=== PATIENT | female | born 1980 | race Asian ===

== ENCOUNTER 2022-02-22 07:48 | Inpatient (IN) ==
[2022-02-22] MEDS ORDERED: OXYTOCIN 30 UNITS/500 ML BAG IV PRN ×2 (07:52→08:00)
[2022-02-22] MEDS ORDERED: LIDOCAINE 1% LOCAL 20 ML VIAL INFIL PRN (07:52)
[2022-02-22 08:34] LABS: Hematocrit (blood only) 32.7 % (34.1-44.9); Hemoglobin 11.5 g/dl (12.0-16.0); Mean Corpuscular Hemoglobin 32.6 pg (25.0-34.0); Mean Corpuscular Hgb Conc 35.2 g/dL (32.0-36.0); Mean Corpuscular Volume 92.6 fL (80.0-100.0); Mean Platelet Volume 11.3 fL (9.4-12.3); Platelet Count 141 K/uL (130-400); RDW Coefficient of Variation 12.8 % (11.5-14.5); RDW Standard Deviation 42.6 fL (36.4-46.3); Red Blood Count 3.53 M/uL (3.93-5.22); White Blood Count 9.55 K/ul (4.8-10.8)
[2022-02-22] MEDS: LACTATED RINGER'S 1,000 ML IV PRN ×4 (09:00→21:27)
--- NOTE | 2022-02-22 17:00 | History & Physical Report ---
Date of Service February 22, 2022 Assessment & Plan (1) Unfavorable cervix in term : Plan: Unfavorable cervix cervix is only 1-2 this morning Pitocin is started COVID testing was done last night expect steady but slow progress Admission and Anticipated Discharge Date Admission Date: February 22, 2022 History of Present Illness Primary Care Provider: NO PCP Visit MADELEINE Calculator Estimated Delivery Date Method Current WG Current Estimate 02/27/22 LMP (Certain) 38w 4d LMP: 05/23/21 : 1 Full term: 0 Premature: 0 Total Number of Induced Abortions: 0 Total Number of Spontaneous Abortions: 0 Ectopics: 0 Multiple births: 0 Number of Living Children: 0 and Delivery Plans AMA>40@del *Anatomy Scan @ 20wks * Echo 22-24wks (01/18/22 @ [facility])-structurally normal;mild flow acceleration across ductal arch; no f/u needed *Growth scan @32wks *Weekly NST's @36 wks *Twice weekly NST @38wks *Weekly MARTY's @38wks *Deliver by 40 wksIOL 04/25 Flu shot given 12/09/21 - [place] Allergies Allergy/AdvReac Type Severity Reaction Status Date / Time No Known Allergies Allergy Verified 02/21/22 19:36 Home Medications Medication Instructions Recorded Confirmed Type calcium carbonate [Calcium 500] 500 mg PO DAILY 11/24/21 02/22/22 History prenat.vits,rachel,wvt-bqbl-jlvec 1 tab PO DAILY 11/24/21 02/22/22 History calcium phosphate,dibasic 77 1 tab PO DAILY 02/21/22 02/22/22 History mg-vitamin D3 400 unit tablet ferrous sulfate 325 mg (65 mg 325 mg PO DAILY 02/21/22 02/22/22 History iron) tablet (Iron (ferrous sulfate)) Patient History Medical History Varicella vaccination Surgical History No history of previous surgery Family History Aunt Colorectal cancer Denies family history of Ovarian cancer Breast cancer Social History (Updated 02/22/22 @ 08:04 by Tequila Kinsey, BART) Smoking Status: Never smoker Hx Alcohol Use: No Hx Substance Use: No Preferred Language: Armenian Communication Ability: Effective Communication Ability Comment: Speaks Belarusian well. Declines interpretor at this time. Visual Impairment: No Limitations Hearing Ability: Normal Quality Cloth Tester Required: No Beliefs That Will Affect Care: None marital status: marital status details: Abraham Prieto (41) [phone] Current Living Situation: Spouse Current Living Situation Comment: lives with spouse, no pets current occupational status: employed and retired current occupation: [employer] Feels Safe at Home: Yes Safety Concerns: Feels Safe At This Time Assistive Devices: None Review of Systems as per Subjective / HPI Physical Exam Constitutional: WD/WN, vitals as above well developed and well nourished Respiratory: normal respiratory effort, lungs clear to auscultation normal respiratory effort Cardiovascular: RRR, no murmur, no edema Gastrointestinal (Abdomen): normal bowel sounds, soft, nontender, no hepatosplenomegaly Results & Data ([facility]) Vital Signs (Past 12 Hours) Vital Signs Temp Pulse Resp BP 02/22/22 08:06 98.1 F 18 02/22/22 16:08 69 02/22/22 16:08 20 91/57 L 02/22/22 14:51 18 02/22/22 14:51 98.4 F 18 02/22/22 15:01 68 02/22/22 15:01 20 90/58 L 02/22/22 14:00 76 02/22/22 14:00 98/57 L 02/22/22 13:06 74 02/22/22 13:06 101/59 L 02/22/22 12:07 69 02/22/22 12:07 96/56 L 02/22/22 11:01 18 02/22/22 11:01 98.2 F 18 02/22/22 11:01 68 02/22/22 11:01 92/58 L 02/22/22 10:06 69 02/22/22 10:06 94/57 L 02/22/22 08:59 18 02/22/22 08:59 18 02/22/22 08:59 82 02/22/22 08:59 99/58 L 02/22/22 07:56 98.1 F 100 H 18 105/66 Coding Level of Care Code None Diagnoses Unfavorable cervix in term O34.40
[2022-02-22] MEDS ORDERED: ePHEDrine sulfate 50 MG/ML AMP ONE (19:34)
[2022-02-22] MEDS ORDERED: fentaNYL citrate 100 MCG/2 ML VIAL ONE (19:35)
[2022-02-22] MEDS ORDERED: SODIUM CHLORIDE 0.9% INJ 10 ML VIAL ONE (19:35)
[2022-02-22] MEDS ORDERED: BUPIVACAINE 0.25% 30 ML VIAL ONE (19:35)
[2022-02-22] MEDS ORDERED: LIDOCAINE 2%/EPINEPHRINE 1:200,000 20 ML SDV ONE (19:35)
[2022-02-22] MEDS ORDERED: fentaNYL 2MCG/ML ROPIVACAINE 1.25MG/ML 100 ML BAG EPI ONE (19:36)
[2022-02-22] MEDS ORDERED: ePHEDrine sulfate 50 MG/ML AMP IV PRN (20:25)
[2022-02-22] MEDS ORDERED: NALOXONE HCL 0.4 MG/1 ML VIAL/CARP IV PRN (20:25)
[2022-02-22] MEDS ORDERED: NALOXONE HCL 1 MG in SODIUM CHLORIDE 0.9% 1000ML 1,000 ML IV PRN (20:25)
[2022-02-22] MEDS ORDERED: diphenhydrAMINE 50 MG/ML VIAL IV PRN (20:25)
[2022-02-22] MEDS ORDERED: NALBUPHINE HCL INJ 10 MG/ML AMP IV PRN (20:25)
--- NOTE | 2022-02-22 20:25 | Anesthesiology Consultation ---
Date of Service February 22, 2022 Assessment & Plan Chart Review Chart Review: Patient NOT seen in Pre Admission Testing and Acceptable Risk for Labor Epidural Consults Requested none History Height/Weight Height: 5 ft 6 in Weight: 66.678 kg Allergies Allergy/AdvReac Type Severity Reaction Status Date / Time No Known Allergies Allergy Verified 02/21/22 19:36 Medications Home Medications Medication Instructions Recorded Confirmed Last Taken calcium carbonate [Calcium 500] 500 mg PO DAILY 11/24/21 02/22/22 02/20/22 20:00 prenat.vits,rachel,rrz-kway-lonld 1 tab PO DAILY 11/24/21 02/22/22 Unknown calcium phosphate,dibasic 77 1 tab PO DAILY 02/21/22 02/22/22 02/20/22 20:00 mg-vitamin D3 400 unit tablet ferrous sulfate 325 mg (65 mg 325 mg PO DAILY 02/21/22 02/22/22 02/21/22 09:00 iron) tablet (Iron (ferrous sulfate)) Active Medications Generic Name Dose Route Start Last Admin Trade Name Nam PRN Reason Stop Dose Admin Lactated Ringer's 1,000 mls @ 125 mls/hr 02/22/22 08:00 02/22/22 20:20 Lr IV 02/24/22 07:59 999 mls/hr .Q8H PRN Administration L&D Protocol Protocol Oxytocin 30 units in 500 mls @ 18 mls/hr 02/22/22 08:00 02/22/22 17:58 Pitocin IV 02/24/22 07:59 1.08 units/hr .Q24H PRN 18 mls/hr Labor Induction/Augmentation Titration Protocol 1.08 UNITS/HR Past Medical History Medical History Anemia Varicella vaccination Past Family History Family History Aunt Colorectal cancer Denies family history of Ovarian cancer Breast cancer Past Surgical History Surgical History No history of previous surgery Social History Smoking Status: Never smoker Hx Alcohol Use: No Hx Substance Use: No substance use type: does not use Physical Exam Vital Signs Last Vital Signs Temp 98.6 F 02/22/22 19:15 Pulse 73 02/22/22 20:23 Resp 18 02/22/22 19:15 BP 102/56 L 02/22/22 19:03 Pulse Ox 99 02/22/22 20:23 Testing Laboratory Results 02/22/22 08:10
--- NOTE | 2022-02-22 20:59 | Labor Progress Brief Note ---
Date of Service February 22, 2022 Cx now tight 3cm, has epidural, comfortable. Good CTX pattern Assessment & Plan Admission and Anticipated Discharge Date Admission Date: February 22, 2022 Results & Data ([facility]) Vital Signs (Past 12 Hours) Vital Signs Temp Pulse Resp BP Pulse Ox 02/22/22 20:56 85 02/22/22 20:56 102/67 02/22/22 20:54 74 02/22/22 20:54 99/62 L 02/22/22 20:53 99 02/22/22 20:53 74 02/22/22 20:52 74 02/22/22 20:52 97/63 L 02/22/22 20:50 81 02/22/22 20:50 98/64 L 02/22/22 20:48 99 02/22/22 20:48 79 02/22/22 20:48 104/63 02/22/22 20:46 77 02/22/22 20:46 98/60 L 02/22/22 20:45 75 02/22/22 20:45 101/63 02/22/22 20:43 100 02/22/22 20:43 79 02/22/22 20:44 74 02/22/22 20:44 104/63 02/22/22 20:42 77 02/22/22 20:42 97/60 L 02/22/22 20:40 72 02/22/22 20:40 101/62 02/22/22 20:40 71 02/22/22 20:40 101/64 02/22/22 20:38 99 02/22/22 20:38 70 02/22/22 20:37 77 02/22/22 20:37 110/75 02/22/22 20:33 100 02/22/22 20:33 78 02/22/22 20:28 99 02/22/22 20:28 73 02/22/22 20:24 71 02/22/22 20:24 103/66 02/22/22 20:23 99 02/22/22 20:23 73 02/22/22 20:18 100 02/22/22 20:18 73 02/22/22 19:15 18 02/22/22 19:15 98.6 F 18 02/22/22 20:13 100 02/22/22 20:13 75 02/22/22 20:08 99 02/22/22 20:08 75 02/22/22 20:03 98 02/22/22 20:03 74 02/22/22 19:03 68 02/22/22 19:03 102/56 L 02/22/22 17:58 75 02/22/22 17:58 99/54 L 02/22/22 17:05 70 02/22/22 17:05 93/58 L 02/22/22 16:08 69 02/22/22 16:08 20 91/57 L 02/22/22 14:51 18 02/22/22 14:51 98.4 F 18 02/22/22 15:01 68 02/22/22 15:01 20 90/58 L 02/22/22 14:00 76 02/22/22 14:00 98/57 L 02/22/22 13:06 74 02/22/22 13:06 101/59 L 02/22/22 12:07 69 02/22/22 12:07 96/56 L 02/22/22 11:01 18 02/22/22 11:01 98.2 F 18 02/22/22 11:01 68 02/22/22 11:01 92/58 L 02/22/22 10:06 69 02/22/22 10:06 94/57 L 02/22/22 08:59 18 02/22/22 08:59 18 02/22/22 08:59 82 02/22/22 08:59 99/58 L Coding Level of Care Code None
[2022-02-23] MEDS ORDERED: NURSING L&D Epidural Breakthrough Pain Update ONE (04:19)
[2022-02-23] MEDS: fentaNYL 2MCG/ML ROPIVACAINE 1.25MG/ML 100 ML BAG EPI PRN ×2 (05:00→11:52)
[2022-02-23] MEDS: LACTATED RINGER'S 1,000 ML IV PRN (05:04)
--- NOTE | 2022-02-23 07:26 | History & Physical Report ---
Date of Service February 23, 2022 Summary unfavorable cervix with some minimal benefit with cervical Bonilla Pitocin since yesterday a.m. category 1 heart rate tracing rupture membranes at 2 AM Spontaneous rupture of membranes approximately 2 AM we are at 20 milliunits dose on the Pitocin heart rate tracing is category 1. IUPC is placed to better determine contraction strength contractions on first look adequate we will continue to monitor progress and contractions carefully Discussed with the patient and her that there is genuine progress at this stage is my last check was 1-2 and how she is 4 cm, I do expect if we can get progress that will take off soon. Note estimated weight is 18th percentile so was not thought to be an overly large baby because again my optimism for vaginal delivery. signout with Dr. Jefferson this morning by phone at 7:20 AM Assessment & Plan Admission and Anticipated Discharge Date Admission Date: February 22, 2022 History of Present Illness Primary Care Provider: NO PCP Allergies Allergy/AdvReac Type Severity Reaction Status Date / Time No Known Allergies Allergy Verified 02/21/22 19:36 Home Medications Medication Instructions Recorded Confirmed Type calcium carbonate [Calcium 500] 500 mg PO DAILY 11/24/21 02/22/22 History prenat.vits,rachel,hcd-akne-ruguj 1 tab PO DAILY 11/24/21 02/22/22 History calcium phosphate,dibasic 77 1 tab PO DAILY 02/21/22 02/22/22 History mg-vitamin D3 400 unit tablet ferrous sulfate 325 mg (65 mg 325 mg PO DAILY 02/21/22 02/22/22 History iron) tablet (Iron (ferrous sulfate)) Patient History Medical History Anemia Varicella vaccination Surgical History No history of previous surgery Family History Aunt Colorectal cancer Denies family history of Ovarian cancer Breast cancer Social History Smoking Status: Never smoker Hx Alcohol Use: No Hx Substance Use: No Preferred Language: Yakut Communication Ability: Effective Communication Ability Comment: Speaks Belgian well. Declines interpretor at this time. Visual Impairment: No Limitations Hearing Ability: Normal Hemmer Automatic Required: No Beliefs That Will Affect Care: None marital status: marital status details: Abraham Prieto (41) [phone] Current Living Situation: Spouse Current Living Situation Comment: lives with spouse, no pets current occupational status: employed and retired current occupation: [email or web address] Feels Safe at Home: Yes Safety Concerns: Feels Safe At This Time Assistive Devices: None Results & Data ([facility]) Vital Signs (Past 12 Hours) Vital Signs Temp Pulse Resp BP Pulse Ox O2 Del Method 02/23/22 07:04 98.1 F 18 02/23/22 07:04 Room Air 02/23/22 07:19 88 97 02/23/22 07:14 81 106/61 96 02/23/22 07:09 85 98 02/23/22 07:04 84 98 02/23/22 06:59 92 H 97 02/23/22 06:58 93 H 105/67 02/23/22 06:54 84 98 02/23/22 06:49 80 97 02/23/22 06:44 84 97 02/23/22 06:43 85 110/69 02/23/22 06:39 85 98 02/23/22 06:34 83 98 02/23/22 06:29 82 98 02/23/22 06:28 77 110/69 02/23/22 06:24 78 97 02/23/22 06:19 79 97 02/23/22 06:14 87 99 02/23/22 06:13 85 102/63 02/23/22 06:09 82 98 02/23/22 06:04 78 98 02/23/22 05:59 79 97 02/23/22 05:58 73 106/65 02/23/22 05:54 75 97 02/23/22 05:49 77 97 02/23/22 05:45 78 107/61 02/23/22 05:44 81 98 02/23/22 05:39 83 99 02/23/22 05:34 74 99 02/23/22 05:29 98 02/23/22 05:29 71 02/23/22 05:29 72 97/57 L 02/23/22 05:23 70 97 02/23/22 05:18 75 98 02/23/22 05:15 84 92 02/23/22 05:13 81 99 02/23/22 05:08 74 98 02/23/22 05:03 79 98 02/23/22 04:58 79 99/60 L 100 02/23/22 04:53 75 98 02/23/22 04:48 80 98 02/23/22 04:44 75 107/63 02/23/22 04:43 74 98 02/23/22 04:38 77 96 02/23/22 04:33 77 98 02/23/22 04:30 78 105/67 02/23/22 04:28 75 98 02/23/22 04:23 79 97 02/23/22 04:18 82 98 02/23/22 04:14 77 102/65 02/23/22 04:13 79 99 02/23/22 04:08 78 98 02/23/22 04:03 79 98 02/23/22 04:00 74 100/63 02/23/22 03:58 74 100 02/23/22 03:53 74 98 02/23/22 03:48 75 96 02/23/22 03:44 75 97/60 L 02/23/22 03:43 76 97 02/23/22 03:38 75 98 02/23/22 03:33 77 100 02/23/22 03:28 72 99/59 L 97 02/23/22 03:23 70 95 02/23/22 03:18 70 96 02/23/22 03:13 68 98/57 L 96 02/23/22 03:08 71 98 02/23/22 03:03 78 99 02/23/22 02:59 72 106/60 02/23/22 02:58 70 97 02/23/22 02:53 72 97 02/23/22 02:48 66 97 02/23/22 02:43 67 97 02/23/22 02:44 79 99/62 L 02/23/22 02:38 69 97 02/23/22 02:33 66 97 02/23/22 02:30 67 104/65 02/23/22 02:28 64 97 02/23/22 02:23 67 97 02/23/22 02:18 78 100 02/23/22 02:15 78 116/60 02/23/22 02:13 85 100 02/23/22 02:14 75 108/64 02/23/22 02:08 81 100 02/23/22 02:03 62 99 02/23/22 02:00 62 96/59 L 02/23/22 01:58 65 99 02/23/22 01:53 63 97 02/23/22 01:48 65 99 02/23/22 01:45 64 88/55 L 02/23/22 01:43 64 99 02/23/22 01:38 64 99 02/23/22 01:33 66 99 02/23/22 01:28 61 95/60 L 97 02/23/22 01:23 63 97 02/23/22 01:18 62 97 02/23/22 01:13 65 97/59 L 96 02/23/22 01:08 64 97 02/23/22 01:03 68 99 02/23/22 01:00 63 91/58 L 02/23/22 00:58 66 99 02/23/22 00:53 68 96 02/23/22 00:48 65 96 02/23/22 00:44 65 89/52 L 02/23/22 00:43 63 97 02/23/22 00:38 63 96 02/23/22 00:33 63 96 02/23/22 00:28 70 98 02/23/22 00:29 66 94/55 L 02/23/22 00:23 64 96 02/23/22 00:18 60 96 02/23/22 00:14 64 98/56 L 02/23/22 00:13 63 97 02/23/22 00:08 63 98 02/23/22 00:03 64 99 02/22/22 23:58 98 02/22/22 23:58 71 02/22/22 23:59 64 02/22/22 23:59 92/59 L 02/22/22 23:53 98 02/22/22 23:53 63 02/22/22 23:48 99 02/22/22 23:48 67 02/22/22 23:44 67 02/22/22 23:44 96/58 L 02/22/22 23:43 99 02/22/22 23:43 70 02/22/22 23:38 98 02/22/22 23:38 60 02/22/22 23:33 97 02/22/22 23:33 61 02/22/22 23:28 98 02/22/22 23:28 61 02/22/22 23:28 98/61 L 02/22/22 23:23 98 02/22/22 23:23 62 02/22/22 23:18 97 02/22/22 23:18 62 02/22/22 23:15 60 02/22/22 23:15 99/59 L 02/22/22 23:13 98 02/22/22 23:13 63 02/22/22 23:08 98 02/22/22 23:08 62 02/22/22 23:03 99 02/22/22 23:03 68 02/22/22 22:59 67 02/22/22 22:59 100/55 L 02/22/22 22:58 98 02/22/22 22:58 62 02/22/22 22:53 98 02/22/22 22:53 67 02/22/22 22:48 97 02/22/22 22:48 62 02/22/22 22:43 97 02/22/22 22:43 69 02/22/22 22:43 105/64 02/22/22 22:38 97 02/22/22 22:38 64 02/22/22 22:33 97 02/22/22 22:33 64 02/22/22 22:29 64 02/22/22 22:29 103/59 L 02/22/22 22:28 97 02/22/22 22:28 64 02/22/22 22:23 97 02/22/22 22:23 63 02/22/22 22:18 98 02/22/22 22:18 69 02/22/22 22:15 64 02/22/22 22:15 97/62 L 02/22/22 22:13 98 02/22/22 22:13 68 02/22/22 22:08 99 02/22/22 22:08 69 02/22/22 22:03 97 02/22/22 22:03 66 02/22/22 22:00 65 02/22/22 22:00 101/64 02/22/22 21:58 98 02/22/22 21:58 65 02/22/22 21:53 99 02/22/22 21:53 62 02/22/22 21:48 97 02/22/22 21:48 65 02/22/22 21:43 98 02/22/22 21:43 65 02/22/22 21:44 65 02/22/22 21:44 98/60 L 02/22/22 21:38 98 02/22/22 21:38 67 02/22/22 21:33 98 02/22/22 21:33 72 02/22/22 21:29 67 02/22/22 21:29 100/59 L 02/22/22 21:28 99 02/22/22 21:28 66 02/22/22 21:23 100 02/22/22 21:23 75 02/22/22 21:18 100 02/22/22 21:18 65 02/22/22 21:15 71 02/22/22 21:15 117/53 L 02/22/22 21:13 100 02/22/22 21:13 79 02/22/22 21:00 16 02/22/22 21:00 98.2 F 16 02/22/22 21:08 98 02/22/22 21:08 82 02/22/22 21:03 98 02/22/22 21:03 72 02/22/22 20:58 99 02/22/22 20:58 73 02/22/22 20:58 99/64 L 02/22/22 20:56 85 02/22/22 20:56 102/67 02/22/22 20:54 74 02/22/22 20:54 99/62 L 02/22/22 20:53 99 02/22/22 20:53 74 02/22/22 20:52 74 02/22/22 20:52 97/63 L 02/22/22 20:50 81 02/22/22 20:50 98/64 L 02/22/22 20:48 99 02/22/22 20:48 79 02/22/22 20:48 104/63 02/22/22 20:46 77 02/22/22 20:46 98/60 L 02/22/22 20:45 75 02/22/22 20:45 101/63 02/22/22 20:43 100 02/22/22 20:43 79 02/22/22 20:44 74 02/22/22 20:44 104/63 02/22/22 20:42 77 02/22/22 20:42 97/60 L 02/22/22 20:40 72 02/22/22 20:40 101/62 02/22/22 20:40 71 02/22/22 20:40 101/64 02/22/22 20:38 99 02/22/22 20:38 70 02/22/22 20:37 77 02/22/22 20:37 110/75 02/22/22 20:33 100 02/22/22 20:33 78 02/22/22 20:28 99 02/22/22 20:28 73 02/22/22 20:24 71 02/22/22 20:24 103/66 02/22/22 20:23 99 02/22/22 20:23 73 02/22/22 20:18 100 02/22/22 20:18 73 02/22/22 20:13 100 02/22/22 20:13 75 02/22/22 20:08 99 02/22/22 20:08 75 02/22/22 20:03 98 02/22/22 20:03 74 Coding Level of Care Code None
--- NOTE | 2022-02-23 07:35 | Labor Progress Brief Note ---
Date of Service February 23, 2022 On last assessment her contractions do seem reasonable however they could be slightly stronger as her peak is only up to 40 milliunits on each contraction we are at 20 will raise the maximum to 28 Assessment & Plan Admission and Anticipated Discharge Date Admission Date: February 22, 2022 Results & Data ([facility]) Vital Signs (Past 12 Hours) Vital Signs Temp Pulse Resp BP Pulse Ox O2 Del Method 02/23/22 07:04 98.1 F 18 02/23/22 07:04 Room Air 02/23/22 07:29 88 98 02/23/22 07:28 82 99/62 L 02/23/22 07:24 79 97 02/23/22 07:19 88 97 02/23/22 07:14 81 106/61 96 02/23/22 07:09 85 98 02/23/22 07:04 84 98 02/23/22 06:59 92 H 97 02/23/22 06:58 93 H 105/67 02/23/22 06:54 84 98 02/23/22 06:49 80 97 02/23/22 06:44 84 97 02/23/22 06:43 85 110/69 02/23/22 06:39 85 98 02/23/22 06:34 83 98 02/23/22 06:29 82 98 02/23/22 06:28 77 110/69 02/23/22 06:24 78 97 02/23/22 06:19 79 97 02/23/22 06:14 87 99 02/23/22 06:13 85 102/63 02/23/22 06:09 82 98 02/23/22 06:04 78 98 02/23/22 05:59 79 97 02/23/22 05:58 73 106/65 02/23/22 05:54 75 97 02/23/22 05:49 77 97 02/23/22 05:45 78 107/61 02/23/22 05:44 81 98 02/23/22 05:39 83 99 02/23/22 05:34 74 99 02/23/22 05:29 98 02/23/22 05:29 71 02/23/22 05:29 72 97/57 L 02/23/22 05:23 70 97 02/23/22 05:18 75 98 02/23/22 05:15 84 92 02/23/22 05:13 81 99 02/23/22 05:08 74 98 02/23/22 05:03 79 98 02/23/22 04:58 79 99/60 L 100 02/23/22 04:53 75 98 02/23/22 04:48 80 98 02/23/22 04:44 75 107/63 02/23/22 04:43 74 98 02/23/22 04:38 77 96 02/23/22 04:33 77 98 02/23/22 04:30 78 105/67 02/23/22 04:28 75 98 02/23/22 04:23 79 97 02/23/22 04:18 82 98 02/23/22 04:14 77 102/65 02/23/22 04:13 79 99 02/23/22 04:08 78 98 02/23/22 04:03 79 98 02/23/22 04:00 74 100/63 02/23/22 03:58 74 100 02/23/22 03:53 74 98 02/23/22 03:48 75 96 02/23/22 03:44 75 97/60 L 02/23/22 03:43 76 97 02/23/22 03:38 75 98 02/23/22 03:33 77 100 02/23/22 03:28 72 99/59 L 97 02/23/22 03:23 70 95 02/23/22 03:18 70 96 02/23/22 03:13 68 98/57 L 96 02/23/22 03:08 71 98 02/23/22 03:03 78 99 02/23/22 02:59 72 106/60 02/23/22 02:58 70 97 02/23/22 02:53 72 97 02/23/22 02:48 66 97 02/23/22 02:43 67 97 02/23/22 02:44 79 99/62 L 02/23/22 02:38 69 97 02/23/22 02:33 66 97 02/23/22 02:30 67 104/65 02/23/22 02:28 64 97 02/23/22 02:23 67 97 02/23/22 02:18 78 100 02/23/22 02:15 78 116/60 02/23/22 02:13 85 100 02/23/22 02:14 75 108/64 02/23/22 02:08 81 100 02/23/22 02:03 62 99 02/23/22 02:00 62 96/59 L 02/23/22 01:58 65 99 02/23/22 01:53 63 97 02/23/22 01:48 65 99 02/23/22 01:45 64 88/55 L 02/23/22 01:43 64 99 02/23/22 01:38 64 99 02/23/22 01:33 66 99 02/23/22 01:28 61 95/60 L 97 02/23/22 01:23 63 97 02/23/22 01:18 62 97 02/23/22 01:13 65 97/59 L 96 02/23/22 01:08 64 97 02/23/22 01:03 68 99 02/23/22 01:00 63 91/58 L 02/23/22 00:58 66 99 02/23/22 00:53 68 96 02/23/22 00:48 65 96 02/23/22 00:44 65 89/52 L 02/23/22 00:43 63 97 02/23/22 00:38 63 96 02/23/22 00:33 63 96 02/23/22 00:28 70 98 02/23/22 00:29 66 94/55 L 02/23/22 00:23 64 96 02/23/22 00:18 60 96 02/23/22 00:14 64 98/56 L 02/23/22 00:13 63 97 02/23/22 00:08 63 98 02/23/22 00:03 64 99 02/22/22 23:58 98 02/22/22 23:58 71 02/22/22 23:59 64 02/22/22 23:59 92/59 L 02/22/22 23:53 98 02/22/22 23:53 63 02/22/22 23:48 99 02/22/22 23:48 67 02/22/22 23:44 67 02/22/22 23:44 96/58 L 02/22/22 23:43 99 02/22/22 23:43 70 02/22/22 23:38 98 02/22/22 23:38 60 02/22/22 23:33 97 02/22/22 23:33 61 02/22/22 23:28 98 02/22/22 23:28 61 02/22/22 23:28 98/61 L 02/22/22 23:23 98 02/22/22 23:23 62 02/22/22 23:18 97 02/22/22 23:18 62 02/22/22 23:15 60 02/22/22 23:15 99/59 L 02/22/22 23:13 98 02/22/22 23:13 63 02/22/22 23:08 98 02/22/22 23:08 62 02/22/22 23:03 99 02/22/22 23:03 68 02/22/22 22:59 67 02/22/22 22:59 100/55 L 02/22/22 22:58 98 02/22/22 22:58 62 02/22/22 22:53 98 02/22/22 22:53 67 02/22/22 22:48 97 02/22/22 22:48 62 02/22/22 22:43 97 02/22/22 22:43 69 02/22/22 22:43 105/64 02/22/22 22:38 97 02/22/22 22:38 64 02/22/22 22:33 97 02/22/22 22:33 64 02/22/22 22:29 64 02/22/22 22:29 103/59 L 02/22/22 22:28 97 02/22/22 22:28 64 02/22/22 22:23 97 02/22/22 22:23 63 02/22/22 22:18 98 02/22/22 22:18 69 02/22/22 22:15 64 02/22/22 22:15 97/62 L 02/22/22 22:13 98 02/22/22 22:13 68 02/22/22 22:08 99 02/22/22 22:08 69 02/22/22 22:03 97 02/22/22 22:03 66 02/22/22 22:00 65 02/22/22 22:00 101/64 02/22/22 21:58 98 02/22/22 21:58 65 02/22/22 21:53 99 02/22/22 21:53 62 02/22/22 21:48 97 02/22/22 21:48 65 02/22/22 21:43 98 02/22/22 21:43 65 02/22/22 21:44 65 02/22/22 21:44 98/60 L 02/22/22 21:38 98 02/22/22 21:38 67 02/22/22 21:33 98 02/22/22 21:33 72 02/22/22 21:29 67 02/22/22 21:29 100/59 L 02/22/22 21:28 99 02/22/22 21:28 66 02/22/22 21:23 100 02/22/22 21:23 75 02/22/22 21:18 100 02/22/22 21:18 65 02/22/22 21:15 71 02/22/22 21:15 117/53 L 02/22/22 21:13 100 02/22/22 21:13 79 02/22/22 21:00 16 02/22/22 21:00 98.2 F 16 02/22/22 21:08 98 02/22/22 21:08 82 02/22/22 21:03 98 02/22/22 21:03 72 02/22/22 20:58 99 02/22/22 20:58 73 02/22/22 20:58 99/64 L 02/22/22 20:56 85 02/22/22 20:56 102/67 02/22/22 20:54 74 02/22/22 20:54 99/62 L 02/22/22 20:53 99 02/22/22 20:53 74 02/22/22 20:52 74 02/22/22 20:52 97/63 L 02/22/22 20:50 81 02/22/22 20:50 98/64 L 02/22/22 20:48 99 02/22/22 20:48 79 02/22/22 20:48 104/63 02/22/22 20:46 77 02/22/22 20:46 98/60 L 02/22/22 20:45 75 02/22/22 20:45 101/63 02/22/22 20:43 100 02/22/22 20:43 79 02/22/22 20:44 74 02/22/22 20:44 104/63 02/22/22 20:42 77 02/22/22 20:42 97/60 L 02/22/22 20:40 72 02/22/22 20:40 101/62 02/22/22 20:40 71 02/22/22 20:40 101/64 02/22/22 20:38 99 02/22/22 20:38 70 02/22/22 20:37 77 02/22/22 20:37 110/75 02/22/22 20:33 100 02/22/22 20:33 78 02/22/22 20:28 99 02/22/22 20:28 73 02/22/22 20:24 71 02/22/22 20:24 103/66 02/22/22 20:23 99 02/22/22 20:23 73 02/22/22 20:18 100 02/22/22 20:18 73 02/22/22 20:13 100 02/22/22 20:13 75 02/22/22 20:08 99 02/22/22 20:08 75 02/22/22 20:03 98 02/22/22 20:03 74 Coding Level of Care Code None
--- NOTE | 2022-02-23 10:07 | Labor Progress Brief Note ---
Date of Service February 23, 2022 Subjective Patient is comfortable with epidural. She reports some frustration and fatigue as the process has been very slow and she did not sleep well either the night she got her montes catheter nor last night with pitocin / hospital bed. However she feels she is willing to continue IOL process at this time. Assessment & Plan (1) Elderly primigravida: Plan: IOL for AMA >40yo, otherwise normal, but now on day 3 of induction (Montes on 02/21, pitocin early 02/22 through the night into today, now 02/23 and has reached 4+cm dilation.) SROM occurred at 2am per RN report to me today. Patient is tolerating contractions well, and feels she can continue process though voices frustration with slow pace and long time since she's slept well. Will increase the pitocin ceiling to 34 as MVU have never yet reached goal of 200-250. Admission and Anticipated Discharge Date Admission Date: February 22, 2022 Physical Exam Genitourinary: FHT Cat 1 [place] Q3m Pit @ 26 MVU 150 Cvx 4-5/90/-1 molding present Results & Data ([facility]) Vital Signs (Past 12 Hours) Vital Signs Temp Pulse Resp BP Pulse Ox O2 Del Method 02/23/22 07:04 98.1 F 18 02/23/22 07:04 Room Air 02/23/22 09:55 75 99 02/23/22 09:50 78 99 02/23/22 09:45 99 02/23/22 09:45 79 02/23/22 09:45 77 103/64 02/23/22 09:40 82 99 02/23/22 09:35 78 100 02/23/22 09:30 78 100 02/23/22 09:28 70 100/61 02/23/22 09:25 75 98 02/23/22 09:20 69 98 02/23/22 09:15 73 97 02/23/22 09:14 72 103/64 02/23/22 09:10 72 97 02/23/22 09:05 77 99 02/23/22 09:00 77 99 02/23/22 08:59 71 101/62 02/23/22 08:55 69 97 02/23/22 08:50 77 97 02/23/22 08:45 70 95 02/23/22 08:43 65 87/49 L 02/23/22 08:40 72 96 02/23/22 08:35 74 97 02/23/22 08:33 69 85/53 L 02/23/22 08:31 71 85/53 L 02/23/22 08:30 65 96 02/23/22 08:29 67 79/46 L 02/23/22 08:25 67 97 02/23/22 08:20 69 96 02/23/22 08:15 97 02/23/22 08:15 68 02/23/22 08:15 69 82/49 L 02/23/22 08:09 68 98 02/23/22 08:04 71 97 02/23/22 07:59 76 103/59 L 97 02/23/22 07:54 78 97 02/23/22 07:49 75 96 02/23/22 07:44 78 96 02/23/22 07:43 76 101/64 02/23/22 07:39 77 96 02/23/22 07:34 79 96 02/23/22 07:29 88 98 02/23/22 07:28 82 99/62 L 02/23/22 07:24 79 97 02/23/22 07:19 88 97 02/23/22 07:14 81 106/61 96 02/23/22 07:09 85 98 02/23/22 07:04 84 98 02/23/22 06:59 92 H 97 02/23/22 06:58 93 H 105/67 02/23/22 06:54 84 98 02/23/22 06:49 80 97 02/23/22 06:44 84 97 02/23/22 06:43 85 110/69 02/23/22 06:39 85 98 02/23/22 06:34 83 98 02/23/22 06:29 82 98 02/23/22 06:28 77 110/69 02/23/22 06:24 78 97 02/23/22 06:19 79 97 02/23/22 06:14 87 99 02/23/22 06:13 85 102/63 02/23/22 06:09 82 98 02/23/22 06:04 78 98 02/23/22 05:59 79 97 02/23/22 05:58 73 106/65 02/23/22 05:54 75 97 02/23/22 05:49 77 97 02/23/22 05:45 78 107/61 02/23/22 05:44 81 98 02/23/22 05:39 83 99 02/23/22 05:34 74 99 02/23/22 05:29 98 02/23/22 05:29 71 02/23/22 05:29 72 97/57 L 02/23/22 05:23 70 97 02/23/22 05:18 75 98 02/23/22 05:15 84 92 02/23/22 05:13 81 99 02/23/22 05:08 74 98 02/23/22 05:03 79 98 02/23/22 04:58 79 99/60 L 100 02/23/22 04:53 75 98 02/23/22 04:48 80 98 02/23/22 04:44 75 107/63 02/23/22 04:43 74 98 02/23/22 04:38 77 96 02/23/22 04:33 77 98 02/23/22 04:30 78 105/67 02/23/22 04:28 75 98 02/23/22 04:23 79 97 02/23/22 04:18 82 98 02/23/22 04:14 77 102/65 02/23/22 04:13 79 99 02/23/22 04:08 78 98 02/23/22 04:03 79 98 02/23/22 04:00 74 100/63 02/23/22 03:58 74 100 02/23/22 03:53 74 98 02/23/22 03:48 75 96 02/23/22 03:44 75 97/60 L 02/23/22 03:43 76 97 02/23/22 03:38 75 98 02/23/22 03:33 77 100 02/23/22 03:28 72 99/59 L 97 02/23/22 03:23 70 95 02/23/22 03:18 70 96 02/23/22 03:13 68 98/57 L 96 02/23/22 03:08 71 98 02/23/22 03:03 78 99 02/23/22 02:59 72 106/60 02/23/22 02:58 70 97 02/23/22 02:53 72 97 02/23/22 02:48 66 97 02/23/22 02:43 67 97 02/23/22 02:44 79 99/62 L 02/23/22 02:38 69 97 02/23/22 02:33 66 97 02/23/22 02:30 67 104/65 02/23/22 02:28 64 97 02/23/22 02:23 67 97 02/23/22 02:18 78 100 02/23/22 02:15 78 116/60 02/23/22 02:13 85 100 02/23/22 02:14 75 108/64 02/23/22 02:08 81 100 02/23/22 02:03 62 99 02/23/22 02:00 62 96/59 L 02/23/22 01:58 65 99 02/23/22 01:53 63 97 02/23/22 01:48 65 99 02/23/22 01:45 64 88/55 L 02/23/22 01:43 64 99 02/23/22 01:38 64 99 02/23/22 01:33 66 99 02/23/22 01:28 61 95/60 L 97 02/23/22 01:23 63 97 02/23/22 01:18 62 97 02/23/22 01:13 65 97/59 L 96 02/23/22 01:08 64 97 02/23/22 01:03 68 99 02/23/22 01:00 63 91/58 L 02/23/22 00:58 66 99 02/23/22 00:53 68 96 02/23/22 00:48 65 96 02/23/22 00:44 65 89/52 L 02/23/22 00:43 63 97 02/23/22 00:38 63 96 02/23/22 00:33 63 96 02/23/22 00:28 70 98 02/23/22 00:29 66 94/55 L 02/23/22 00:23 64 96 02/23/22 00:18 60 96 02/23/22 00:14 64 98/56 L 02/23/22 00:13 63 97 02/23/22 00:08 63 98 02/23/22 00:03 64 99 02/22/22 23:58 98 02/22/22 23:58 71 02/22/22 23:59 64 02/22/22 23:59 92/59 L 02/22/22 23:53 98 02/22/22 23:53 63 02/22/22 23:48 99 02/22/22 23:48 67 02/22/22 23:44 67 02/22/22 23:44 96/58 L 02/22/22 23:43 99 02/22/22 23:43 70 02/22/22 23:38 98 02/22/22 23:38 60 02/22/22 23:33 97 02/22/22 23:33 61 02/22/22 23:28 98 02/22/22 23:28 61 02/22/22 23:28 98/61 L 02/22/22 23:23 98 02/22/22 23:23 62 02/22/22 23:18 97 02/22/22 23:18 62 02/22/22 23:15 60 02/22/22 23:15 99/59 L 02/22/22 23:13 98 02/22/22 23:13 63 02/22/22 23:08 98 02/22/22 23:08 62 02/22/22 23:03 99 02/22/22 23:03 68 02/22/22 22:59 67 02/22/22 22:59 100/55 L 02/22/22 22:58 98 02/22/22 22:58 62 02/22/22 22:53 98 02/22/22 22:53 67 02/22/22 22:48 97 02/22/22 22:48 62 02/22/22 22:43 97 02/22/22 22:43 69 02/22/22 22:43 105/64 02/22/22 22:38 97 02/22/22 22:38 64 02/22/22 22:33 97 02/22/22 22:33 64 02/22/22 22:29 64 02/22/22 22:29 103/59 L 02/22/22 22:28 97 02/22/22 22:28 64 02/22/22 22:23 97 02/22/22 22:23 63 02/22/22 22:18 98 02/22/22 22:18 69 02/22/22 22:15 64 02/22/22 22:15 97/62 L 02/22/22 22:13 98 02/22/22 22:13 68 02/22/22 22:08 99 02/22/22 22:08 69 02/22/22 22:03 97 02/22/22 22:03 66 02/22/22 22:00 65 02/22/22 22:00 101/64 Laboratory Results Vital Signs Temp Pulse Resp BP Pulse Ox O2 Del Method 02/23/22 07:04 98.1 F 18 02/23/22 07:04 Room Air 02/23/22 09:59 71 104/58 L 02/23/22 09:55 75 99 02/23/22 09:50 78 99 02/23/22 09:45 99 02/23/22 09:45 79 02/23/22 09:45 77 103/64 02/23/22 09:40 82 99 02/23/22 09:35 78 100 02/23/22 09:30 78 100 02/23/22 09:28 70 100/61 02/23/22 09:25 75 98 02/23/22 09:20 69 98 02/23/22 09:15 73 97 02/23/22 09:14 72 103/64 02/23/22 09:10 72 97 02/23/22 09:05 77 99 02/23/22 09:00 77 99 02/23/22 08:59 71 101/62 02/23/22 08:55 69 97 02/23/22 08:50 77 97 02/23/22 08:45 70 95 02/23/22 08:43 65 87/49 L 02/23/22 08:40 72 96 02/23/22 08:35 74 97 02/23/22 08:33 69 85/53 L 02/23/22 08:31 71 85/53 L 02/23/22 08:30 65 96 02/23/22 08:29 67 79/46 L 02/23/22 08:25 67 97 02/23/22 08:20 69 96 02/23/22 08:15 97 02/23/22 08:15 68 02/23/22 08:15 69 82/49 L 02/23/22 08:09 68 98 02/23/22 08:04 71 97 02/23/22 07:59 76 103/59 L 97 02/23/22 07:54 78 97 02/23/22 07:49 75 96 02/23/22 07:44 78 96 02/23/22 07:43 76 101/64 02/23/22 07:39 77 96 02/23/22 07:34 79 96 02/23/22 07:29 88 98 02/23/22 07:28 82 99/62 L 02/23/22 07:24 79 97 02/23/22 07:19 88 97 02/23/22 07:14 81 106/61 96 02/23/22 07:09 85 98 02/23/22 07:04 84 98 02/23/22 06:59 92 H 97 02/23/22 06:58 93 H 105/67 02/23/22 06:54 84 98 02/23/22 06:49 80 97 02/23/22 06:44 84 97 02/23/22 06:43 85 110/69 02/23/22 06:39 85 98 02/23/22 06:34 83 98 02/23/22 06:29 82 98 02/23/22 06:28 77 110/69 02/23/22 06:24 78 97 02/23/22 06:19 79 97 02/23/22 06:14 87 99 02/23/22 06:13 85 102/63 02/23/22 06:09 82 98 02/23/22 06:04 78 98 02/23/22 05:59 79 97 02/23/22 05:58 73 106/65 02/23/22 05:54 75 97 02/23/22 05:49 77 97 02/23/22 05:45 78 107/61 02/23/22 05:44 81 98 02/23/22 05:39 83 99 02/23/22 05:34 74 99 02/23/22 05:29 98 02/23/22 05:29 71 02/23/22 05:29 72 97/57 L 02/23/22 05:23 70 97 02/23/22 05:18 75 98 02/23/22 05:15 84 92 02/23/22 05:13 81 99 02/23/22 05:08 74 98 02/23/22 05:03 79 98 02/23/22 04:58 79 99/60 L 100 02/23/22 04:53 75 98 02/23/22 04:48 80 98 02/23/22 04:44 75 107/63 02/23/22 04:43 74 98 02/23/22 04:38 77 96 02/23/22 04:33 77 98 02/23/22 04:30 78 105/67 02/23/22 04:28 75 98 02/23/22 04:23 79 97 02/23/22 04:18 82 98 02/23/22 04:14 77 102/65 02/23/22 04:13 79 99 02/23/22 04:08 78 98 02/23/22 04:03 79 98 02/23/22 04:00 74 100/63 02/23/22 03:58 74 100 02/23/22 03:53 74 98 02/23/22 03:48 75 96 02/23/22 03:44 75 97/60 L 02/23/22 03:43 76 97 02/23/22 03:38 75 98 02/23/22 03:33 77 100 02/23/22 03:28 72 99/59 L 97 02/23/22 03:23 70 95 02/23/22 03:18 70 96 02/23/22 03:13 68 98/57 L 96 02/23/22 03:08 71 98 02/23/22 03:03 78 99 02/23/22 02:59 72 106/60 02/23/22 02:58 70 97 02/23/22 02:53 72 97 02/23/22 02:48 66 97 02/23/22 02:43 67 97 02/23/22 02:44 79 99/62 L 02/23/22 02:38 69 97 02/23/22 02:33 66 97 02/23/22 02:30 67 104/65 02/23/22 02:28 64 97 02/23/22 02:23 67 97 02/23/22 02:18 78 100 02/23/22 02:15 78 116/60 02/23/22 02:13 85 100 02/23/22 02:14 75 108/64 02/23/22 02:08 81 100 02/23/22 02:03 62 99 02/23/22 02:00 62 96/59 L 02/23/22 01:58 65 99 02/23/22 01:53 63 97 02/23/22 01:48 65 99 02/23/22 01:45 64 88/55 L 02/23/22 01:43 64 99 02/23/22 01:38 64 99 02/23/22 01:33 66 99 02/23/22 01:28 61 95/60 L 97 02/23/22 01:23 63 97 02/23/22 01:18 62 97 02/23/22 01:13 65 97/59 L 96 02/23/22 01:08 64 97 02/23/22 01:03 68 99 02/23/22 01:00 63 91/58 L 02/23/22 00:58 66 99 02/23/22 00:53 68 96 02/23/22 00:48 65 96 02/23/22 00:44 65 89/52 L 02/23/22 00:43 63 97 02/23/22 00:38 63 96 02/23/22 00:33 63 96 02/23/22 00:28 70 98 02/23/22 00:29 66 94/55 L 02/23/22 00:23 64 96 02/23/22 00:18 60 96 02/23/22 00:14 64 98/56 L 02/23/22 00:13 63 97 02/23/22 00:08 63 98 02/23/22 00:03 64 99 02/22/22 23:58 98 02/22/22 23:58 71 02/22/22 23:59 64 02/22/22 23:59 92/59 L 02/22/22 23:53 98 02/22/22 23:53 63 02/22/22 23:48 99 02/22/22 23:48 67 02/22/22 23:44 67 02/22/22 23:44 96/58 L 02/22/22 23:43 99 02/22/22 23:43 70 02/22/22 23:38 98 02/22/22 23:38 60 02/22/22 23:33 97 02/22/22 23:33 61 02/22/22 23:28 98 02/22/22 23:28 61 02/22/22 23:28 98/61 L 02/22/22 23:23 98 02/22/22 23:23 62 02/22/22 23:18 97 02/22/22 23:18 62 02/22/22 23:15 60 02/22/22 23:15 99/59 L 02/22/22 23:13 98 02/22/22 23:13 63 02/22/22 23:08 98 02/22/22 23:08 62 02/22/22 23:03 99 02/22/22 23:03 68 02/22/22 22:59 67 02/22/22 22:59 100/55 L 02/22/22 22:58 98 02/22/22 22:58 62 02/22/22 22:53 98 02/22/22 22:53 67 02/22/22 22:48 97 02/22/22 22:48 62 02/22/22 22:43 97 02/22/22 22:43 69 02/22/22 22:43 105/64 02/22/22 22:38 97 02/22/22 22:38 64 02/22/22 22:33 97 02/22/22 22:33 64 02/22/22 22:29 64 02/22/22 22:29 103/59 L 02/22/22 22:28 97 02/22/22 22:28 64 02/22/22 22:23 97 02/22/22 22:23 63 02/22/22 22:18 98 02/22/22 22:18 69 02/22/22 22:15 64 02/22/22 22:15 97/62 L 02/22/22 22:13 98 02/22/22 22:13 68 02/22/22 22:08 99 02/22/22 22:08 69 02/22/22 22:03 97 02/22/22 22:03 66 02/22/22 22:00 65 02/22/22 22:00 101/64 02/22/22 21:58 98 02/22/22 21:58 65 02/22/22 21:53 99 02/22/22 21:53 62 02/22/22 21:48 97 02/22/22 21:48 65 02/22/22 21:43 98 02/22/22 21:43 65 02/22/22 21:44 65 02/22/22 21:44 98/60 L 02/22/22 21:38 98 02/22/22 21:38 67 02/22/22 21:33 98 02/22/22 21:33 72 02/22/22 21:29 67 02/22/22 21:29 100/59 L 02/22/22 21:28 99 02/22/22 21:28 66 02/22/22 21:23 100 02/22/22 21:23 75 02/22/22 21:18 100 02/22/22 21:18 65 02/22/22 21:15 71 02/22/22 21:15 117/53 L 02/22/22 21:13 100 02/22/22 21:13 79 02/22/22 21:00 16 02/22/22 21:00 98.2 F 16 02/22/22 21:08 98 02/22/22 21:08 82 02/22/22 21:03 98 02/22/22 21:03 72 02/22/22 20:58 99 02/22/22 20:58 73 02/22/22 20:58 99/64 L 02/22/22 20:56 85 02/22/22 20:56 102/67 02/22/22 20:54 74 02/22/22 20:54 99/62 L 02/22/22 20:53 99 02/22/22 20:53 74 02/22/22 20:52 74 02/22/22 20:52 97/63 L 02/22/22 20:50 81 02/22/22 20:50 98/64 L 02/22/22 20:48 99 02/22/22 20:48 79 02/22/22 20:48 104/63 02/22/22 20:46 77 02/22/22 20:46 98/60 L 02/22/22 20:45 75 02/22/22 20:45 101/63 02/22/22 20:43 100 02/22/22 20:43 79 02/22/22 20:44 74 02/22/22 20:44 104/63 02/22/22 20:42 77 02/22/22 20:42 97/60 L 02/22/22 20:40 72 02/22/22 20:40 101/62 02/22/22 20:40 71 02/22/22 20:40 101/64 02/22/22 20:38 99 02/22/22 20:38 70 02/22/22 20:37 77 02/22/22 20:37 110/75 02/22/22 20:33 100 02/22/22 20:33 78 02/22/22 20:28 99 02/22/22 20:28 73 02/22/22 20:24 71 02/22/22 20:24 103/66 02/22/22 20:23 99 02/22/22 20:23 73 02/22/22 20:18 100 02/22/22 20:18 73 02/22/22 19:15 18 02/22/22 19:15 98.6 F 18 02/22/22 20:13 100 02/22/22 20:13 75 02/22/22 20:08 99 02/22/22 20:08 75 02/22/22 20:03 98 02/22/22 20:03 74 02/22/22 19:03 68 02/22/22 19:03 102/56 L 02/22/22 17:58 75 02/22/22 17:58 99/54 L 02/22/22 17:05 70 02/22/22 17:05 93/58 L 02/22/22 16:08 69 02/22/22 16:08 20 91/57 L 02/22/22 14:51 18 02/22/22 14:51 98.4 F 18 02/22/22 15:01 68 02/22/22 15:01 20 90/58 L 02/22/22 14:00 76 02/22/22 14:00 98/57 L 02/22/22 13:06 74 02/22/22 13:06 101/59 L 02/22/22 12:07 69 02/22/22 12:07 96/56 L 02/22/22 11:01 18 02/22/22 11:01 98.2 F 18 02/22/22 11:01 68 02/22/22 11:01 92/58 L 02/22/22 10:06 69 02/22/22 10:06 94/57 L Intake and Output 02/22/22 02/23/22 02/23/22 22:59 06:59 14:59 Intake Total 9410.233 / 2578.599 1090.416 / 3669.015 115.000 / 115.000 Output Total 1300 / 1850 750 / 2600 350 / 350 Balance 1240.233 / 728.599 340.416 / 1069.015 -235.000 / -235.000 Intake: IV 2540.233 / 2578.599 1090.416 / 3669.015 115.000 / 115.000 Lactated Ringer's 1,000 ml @ 2416.666 / 2416.666 952.083 / 3368.749 125 mls/hr IV .Q8H PRN Rx#: [id number] Oxytocin 30 units In 500 ml @ 1 123.567 / 161.933 138.333 / 300.266 115.000 / 115.000 .44 UNITS/HR 24 mls/hr IV . [id number] PRN Rx#:[id number] Output: Urine 900 / 1450 Urine Amount (Catheter) 400 / 400 750 / 1150 350 / 350 Straight 400 / 400 750 / 1150 350 / 350 Other: Weight 147 lb Medications Administered Lactated Ringer's (Lr) 1,000 mls @ 125 mls/hr IV .Q8H PRN; Protocol PRN Reason: L&D Protocol Stop: 02/24/22 07:59 Last Admin: 02/23/22 05:04 Dose: 125 mls/hr Documented By: Infusion: 02/23/22 05:04 Dose: 125 mls/hr Documented By: Infusion: 02/23/22 04:00 Dose: 125 mls/hr Documented By: Admin: 02/22/22 21:27 Dose: 125 mls/hr Documented By: Infusion: 02/22/22 21:21 Dose: 999 mls/hr Documented By: Admin: 02/22/22 20:20 Dose: 999 mls/hr Documented By: Infusion: 02/22/22 20:20 Dose: 125 mls/hr Documented By: Admin: 02/22/22 16:13 Dose: 125 mls/hr Documented By: Infusion: 02/22/22 16:13 Dose: 125 mls/hr Documented By: Admin: 02/22/22 09:00 Dose: 125 mls/hr Documented By: YSABEL Oxytocin (Pitocin) 30 units in 500 mls @ 26 mls/hr IV .[id number] PRN; Protocol PRN Reason: Labor Induction/Augmentation Stop: 02/24/22 07:59 Last Titration: 02/23/22 09:30 Dose: 1.56 units/hr, 26 mls/hr Documented By: Titration: 02/23/22 08:30 Dose: 1.44 units/hr, 24 mls/hr Documented By: Titration: 02/23/22 08:00 Dose: 1.32 units/hr, 22 mls/hr Documented By: Titration: 02/23/22 07:02 Dose: 1.2 units/hr, 20 mls/hr Documented By: JH Co-signed By: LZ Titration: 02/23/22 04:00 Dose: 1.2 units/hr, 20 mls/hr Documented By: Titration: 02/22/22 21:05 Dose: 1.2 units/hr, 20 mls/hr Documented By: Titration: 02/22/22 17:58 Dose: 1.08 units/hr, 18 mls/hr Documented By: Titration: 02/22/22 13:45 Dose: 0.96 units/hr, 16 mls/hr Documented By: Titration: 02/22/22 13:05 Dose: 0.84 units/hr, 14 mls/hr Documented By: Titration: 02/22/22 12:32 Dose: 0.72 units/hr, 12 mls/hr Documented By: Titration: 02/22/22 11:42 Dose: 0.6 units/hr, 10 mls/hr Documented By: Titration: 02/22/22 11:08 Dose: 0.48 units/hr, 8 mls/hr Documented By: Titration: 02/22/22 10:07 Dose: 0.36 units/hr, 6 mls/hr Documented By: Titration: 02/22/22 09:30 Dose: 0.24 units/hr, 4 mls/hr Documented By: Admin: 02/22/22 09:00 Dose: 0.12 units/hr, 2 mls/hr Documented By: KBRay Co-signed By: GABBY Ropivacaine (Fentanyl 2mcg/Ml Ropivacaine 1.25mg/Ml 100 Ml Bag) 100 ml EPI PRN PRN; Protocol PRN Reason: Pain R/T Labor Stop: 02/23/22 20:24 Last Admin: 02/23/22 05:00 Dose: 100 ml Documented By: NELSON Co-signed By: RNFuentes Coding Level of Care Code None Diagnoses Elderly primigravida O09.519
[2022-02-23] MEDS ORDERED: LACTATED RINGER'S 1,000 ML IV SCH (12:00)
--- NOTE | 2022-02-23 12:04 | Labor Progress Brief Note ---
Date of Service February 23, 2022 Subjective Patient feeling some pressure with contractions now. Assessment & Plan (1) Elderly primigravida: Plan: Induction of labor with inability to reach adequate MVU despite significant doses of pitocin and now 3rd calendar day. Patient exhausted and frustrated. status reassuring. Discussed with patient and FOB at length. Option to continue induction is available; can increase pitocin ceiling a bit further or (this latter option would be my preference) take a break from pitocin to desaturate receptors, and resume at 1/2 current dose after that, hoping for more efficacy with lower doses. Risks of lengthening time of labor and prolonged use of pitocin were discussed, specifically including infection and hemorrhage risk. However at this time we have neither distress nor criteria for failed induction, no active bleeding, and there is no requirement that we end the attempt of induction. Alternative option would be to elect at this time, on the basis of patient's fatigue and the risks of continuing weighed against her understanding of the surgical risks and her preference to end the process now. She is interested in proceeding directly to without further attempts to achieve a vaginal delivery. Consent process completed, all questions answered of patient and FOB, and will move to . Admission and Anticipated Discharge Date Admission Date: February 22, 2022 Physical Exam Genitourinary: FHT Cat 1 [place] Q2-3 MVU 190 Pit @ 34 Cvx unchanged from last exam, molding somewhat more pronounced Results & Data ([facility]) Vital Signs (Past 12 Hours) Vital Signs Temp Pulse Resp BP Pulse Ox O2 Del Method 02/23/22 07:04 98.1 F 18 02/23/22 07:04 Room Air 02/23/22 11:55 78 99 02/23/22 11:50 80 99 02/23/22 11:45 81 110/65 99 02/23/22 11:40 77 99 02/23/22 11:35 74 98 02/23/22 11:30 78 98 02/23/22 11:29 77 117/61 02/23/22 11:25 73 99 02/23/22 11:20 78 97 02/23/22 11:15 72 109/63 98 02/23/22 11:10 74 98 02/23/22 11:05 77 99 02/23/22 11:00 98.2 F 75 18 99 02/23/22 10:58 77 102/64 02/23/22 10:55 73 97 02/23/22 10:50 84 99 02/23/22 10:45 72 101/62 98 02/23/22 10:40 74 97 02/23/22 10:35 74 97 02/23/22 10:30 73 97 02/23/22 10:29 76 105/65 02/23/22 10:25 72 96 02/23/22 10:20 74 97 02/23/22 10:15 71 97 02/23/22 10:14 74 104/65 02/23/22 10:10 70 96 02/23/22 10:05 74 95 02/23/22 10:00 81 97 02/23/22 09:59 71 104/58 L 02/23/22 09:55 75 99 02/23/22 09:50 78 99 02/23/22 09:45 99 02/23/22 09:45 79 02/23/22 09:45 77 103/64 02/23/22 09:40 82 99 02/23/22 09:35 78 100 02/23/22 09:30 78 100 02/23/22 09:28 70 100/61 02/23/22 09:25 75 98 02/23/22 09:20 69 98 02/23/22 09:15 73 97 02/23/22 09:14 72 103/64 02/23/22 09:10 72 97 02/23/22 09:05 77 99 02/23/22 09:00 77 99 02/23/22 08:59 71 101/62 02/23/22 08:55 69 97 02/23/22 08:50 77 97 02/23/22 08:45 70 95 02/23/22 08:43 65 87/49 L 02/23/22 08:40 72 96 02/23/22 08:35 74 97 02/23/22 08:33 69 85/53 L 02/23/22 08:31 71 85/53 L 02/23/22 08:30 65 96 02/23/22 08:29 67 79/46 L 02/23/22 08:25 67 97 02/23/22 08:20 69 96 02/23/22 08:15 97 02/23/22 08:15 68 02/23/22 08:15 69 82/49 L 02/23/22 08:09 68 98 02/23/22 08:04 71 97 02/23/22 07:59 76 103/59 L 97 02/23/22 07:54 78 97 02/23/22 07:49 75 96 02/23/22 07:44 78 96 02/23/22 07:43 76 101/64 02/23/22 07:39 77 96 02/23/22 07:34 79 96 02/23/22 07:29 88 98 02/23/22 07:28 82 99/62 L 02/23/22 07:24 79 97 02/23/22 07:19 88 97 02/23/22 07:14 81 106/61 96 02/23/22 07:09 85 98 02/23/22 07:04 84 98 02/23/22 06:59 92 H 97 02/23/22 06:58 93 H 105/67 02/23/22 06:54 84 98 02/23/22 06:49 80 97 02/23/22 06:44 84 97 02/23/22 06:43 85 110/69 02/23/22 06:39 85 98 02/23/22 06:34 83 98 02/23/22 06:29 82 98 02/23/22 06:28 77 110/69 02/23/22 06:24 78 97 02/23/22 06:19 79 97 02/23/22 06:14 87 99 02/23/22 06:13 85 102/63 02/23/22 06:09 82 98 02/23/22 06:04 78 98 02/23/22 05:59 79 97 02/23/22 05:58 73 106/65 02/23/22 05:54 75 97 02/23/22 05:49 77 97 02/23/22 05:45 78 107/61 02/23/22 05:44 81 98 02/23/22 05:39 83 99 02/23/22 05:34 74 99 02/23/22 05:29 98 02/23/22 05:29 71 02/23/22 05:29 72 97/57 L 02/23/22 05:23 70 97 02/23/22 05:18 75 98 02/23/22 05:15 84 92 02/23/22 05:13 81 99 12/28/22 05:08 74 98 02/23/22 05:03 79 98 02/23/22 04:58 79 99/60 L 100 02/23/22 04:53 75 98 02/23/22 04:48 80 98 02/23/22 04:44 75 107/63 02/23/22 04:43 74 98 02/23/22 04:38 77 96 02/23/22 04:33 77 98 02/23/22 04:30 78 105/67 02/23/22 04:28 75 98 02/23/22 04:23 79 97 02/23/22 04:18 82 98 02/23/22 04:14 77 102/65 02/23/22 04:13 79 99 02/23/22 04:08 78 98 02/23/22 04:03 79 98 02/23/22 04:00 74 100/63 02/23/22 03:58 74 100 02/23/22 03:53 74 98 02/23/22 03:48 75 96 02/23/22 03:44 75 97/60 L 02/23/22 03:43 76 97 02/23/22 03:38 75 98 02/23/22 03:33 77 100 02/23/22 03:28 72 99/59 L 97 02/23/22 03:23 70 95 02/23/22 03:18 70 96 02/23/22 03:13 68 98/57 L 96 02/23/22 03:08 71 98 02/23/22 03:03 78 99 02/23/22 02:59 72 106/60 02/23/22 02:58 70 97 02/23/22 02:53 72 97 02/23/22 02:48 66 97 02/23/22 02:43 67 97 02/23/22 02:44 79 99/62 L 02/23/22 02:38 69 97 02/23/22 02:33 66 97 02/23/22 02:30 67 104/65 02/23/22 02:28 64 97 02/23/22 02:23 67 97 02/23/22 02:18 78 100 02/23/22 02:15 78 116/60 02/23/22 02:13 85 100 02/23/22 02:14 75 108/64 02/23/22 02:08 81 100 02/23/22 02:03 62 99 02/23/22 02:00 62 96/59 L 02/23/22 01:58 65 99 02/23/22 01:53 63 97 02/23/22 01:48 65 99 02/23/22 01:45 64 88/55 L 02/23/22 01:43 64 99 02/23/22 01:38 64 99 02/23/22 01:33 66 99 02/23/22 01:28 61 95/60 L 97 02/23/22 01:23 63 97 02/23/22 01:18 62 97 02/23/22 01:13 65 97/59 L 96 02/23/22 01:08 64 97 02/23/22 01:03 68 99 02/23/22 01:00 63 91/58 L 02/23/22 00:58 66 99 02/23/22 00:53 68 96 02/23/22 00:48 65 96 02/23/22 00:44 65 89/52 L 02/23/22 00:43 63 97 02/23/22 00:38 63 96 02/23/22 00:33 63 96 02/23/22 00:28 70 98 02/23/22 00:29 66 94/55 L 02/23/22 00:23 64 96 02/23/22 00:18 60 96 02/23/22 00:14 64 98/56 L 02/23/22 00:13 63 97 02/23/22 00:08 63 98 02/23/22 00:03 64 99 Coding Level of Care Code None Diagnoses Elderly primigravida O09.519
[2022-02-23] MEDS ORDERED: fentaNYL citrate 100 MCG/2 ML VIAL ONE (12:12)
[2022-02-23] MEDS ORDERED: CITRIC ACID/SODIUM CITRATE 15 ML UDC PO SCH (12:15)
[2022-02-23] MEDS ORDERED: ceFAZolin 2000MG 2,000 MG/15 ML SYR IV SCH (12:15)
[2022-02-23] MEDS ORDERED: NALOXONE HCL 0.08 MG in SYRINGE 1.8 ML IV PRN (12:24)
[2022-02-23] MEDS ORDERED: diphenhydrAMINE 50 MG/ML VIAL IV PRN (12:24)
[2022-02-23] MEDS ORDERED: NALOXONE HCL 1 MG in SODIUM CHLORIDE 0.9% 1000ML 1,000 ML IV PRN (12:24)
[2022-02-23] MEDS ORDERED: NALOXONE HCL 0.4 MG/1 ML VIAL/CARP IV PRN (12:24)
[2022-02-23] MEDS ORDERED: ONDANSETRON INJ 2 MG/ML 2 ML VIAL IV PRN (12:24)
[2022-02-23] MEDS ORDERED: MoRPHine SULFATE PF 1 MG/ML 10 ML AMP/VIAL EPI ONE (12:24)
[2022-02-23] MEDS ORDERED: NALBUPHINE HCL INJ 10 MG/ML AMP IV PRN (12:24)
[2022-02-23] MEDS ORDERED: LACTATED RINGER'S 500 ML IV PRN (12:24)
[2022-02-23] MEDS ORDERED: ePHEDrine sulfate 50 MG/ML AMP IV PRN (12:24)
[2022-02-23] MEDS ORDERED: KETOROLAC 30 MG/ML VIAL IV PRN (12:24)
[2022-02-23] MEDS ORDERED: SODIUM CHLORIDE 0.9% 1000ML 1,000 ML IV SCH (12:30)
[2022-02-23] MEDS ORDERED: DC INTRASPINAL MORPHINE SCH (12:30)
[2022-02-23] MEDS ORDERED: NO NARCOTICS OR SEDATIVES SCH (12:30)
[2022-02-23] MEDS ORDERED: PHENYLEPHRINE 100MCG/ML 5ML SYR ONE (12:46)
[2022-02-23] MEDS ORDERED: LIDOCAINE 2%/EPINEPHRINE 1:200,000 20 ML SDV ONE (12:46)
[2022-02-23] MEDS ORDERED: OXYTOCIN 10 UNITS/ML 10ML VIAL ONE ×2 (12:46→12:48)
[2022-02-23] MEDS ORDERED: MoRPHine SULFATE PF 1 MG/ML 10 ML AMP/VIAL ONE (12:47)
[2022-02-23] MEDS ORDERED: ONDANSETRON INJ 2 MG/ML 2 ML VIAL ONE (13:11)
[2022-02-23] MEDS ORDERED: MAGNESIUM HYDROXIDE SUSP 30 ML UDC PO PRN ×2 (13:29→14:32)
[2022-02-23] MEDS ORDERED: HYDROCORTISONE ACETATE 25 MG SUPP PR PRN ×2 (13:29→14:32)
[2022-02-23] MEDS ORDERED: DIPHTHERIA/TETANUS/PERTUSSIS 0.5 ML SYR/VIAL IM ONE (13:29)
[2022-02-23] MEDS ORDERED: BENZOCAINE 20% AER SPR 82.5 GM CAN EXT PRN ×2 (13:29→14:32)
--- NOTE | 2022-02-23 13:42 | Operative Report ---
PG Post Operative Report Pre & Post Diagnosis Operation Date: 02/23/22 12:00 Elderly Primigravida Induction of Labor, prolonged Maternal request for section I identified the patient and participated in the time-out.: Yes Procedure Operation Date: 02/23/22 12:00 Primary Low Transverse Section Surgeon Natividad Jefferson MD Nub Card Tender Shani Cárdenas, PGY1 Estimated Blood Loss 500 Findings Consistent with Post-Op Diagnosis Specimens Placenta, Cord blood Anesthesia Type L&D Only Epidural Exists Complications none Disposition Accompanied Patient To Recovery: Yes Disposition: L&D Description of Procedure The patient was placed operating table in the supine position with a leftward tilt. She was prepped and draped in standard sterile fashion. The anesthetic was tested and found to be adequate. A time-out was held, identifying correct pa tient, procedure, positioning and preoperative antibiotics. There were no concerns. A Pfannenstiel skin incision was made with a knife and taken down to the underlying layer of fascia. The fascia was incised in the midline with the knife and taken out laterally with scissors. The superior edge of the fascial incision was grasped, elevated and dissected off the underlying rectus both superiorly and inferiorly. The muscles were bluntly in the midline. The peritoneum was entered bluntly. The incision was then stretched. The bladder retractor was placed. The vesicouterine peritoneum was identified, entered bluntly and taken out laterally with scissors. The bladder flap was created digitally. A hysterotomy incision was created transversely in the lower uterine segment, final entry being accomplished in a blunt manner with the web press operator's fingers. Clear amniotic fluid was encountered. The web press operator's hand was used to elevate the head to the hysterotomy. The head was delivered using mild fundal pressure, and the shoulders and body followed without difficulty. The cord was clamped and cut and the was then handed off to the awaiting hooker off. Cord blood was obtained. The placenta was Manually extracted. The uterus was exteriorized and cleared of all clot and debris with moistened laparotomy sponges. The hysterotomy incision was repaired in two layers, the first in a running locked layer, the second in an imbricating layer. The ovaries and tubes were seen to be normal bilaterally. The uterus was gently replaced in the abdomen, and the gutters were cleared of clot and debris. A final inspection of the hysterotomy revealed good hemostasis. The rectus muscles were allowed to reapproximate naturally. The fascia was then reapproximated with 1 Vicryl in a running nonlocked manner. The fascia was examined and found to be free of defect following closure. The subcutaneous tissue was copiously irrigated and reapproximated with 0-chromic, then the skin edges were closed with 4-0 monocryl in a subcuticular fashion. A dermabond dressing was applied. The montes was found to be draining clear yellow urine at completion of the procedure. I attest to the content of the Intraoperative Record and any orders documented therein. Any exceptions are noted below. I attest to the content of the Intraoperative Record and any orders documented therein. Any exceptions are noted below. OB Procedure Charges 15648
[2022-02-23] MEDS ORDERED: OXYTOCIN 30 UNITS in LACTATED RINGER'S 1,000 ML IV SCH ×2 (13:45→14:32)
[2022-02-23] MEDS ORDERED: SENNA 8.6 MG TAB PO PRN ×2 (13:56→14:32)
--- NOTE | 2022-02-23 15:21 | Anesthesiology Progress Note ---
Date of Service February 23, 2022 Anesthesia Post Procedure Vital Signs Vital Signs: Temp Pulse Resp BP Pulse Ox O2 Del Method 02/23/22 14:45 36.6 C 20 02/23/22 14:35 18 02/23/22 14:25 16 02/23/22 14:20 20 02/23/22 14:05 18 02/23/22 13:55 16 02/23/22 13:45 36.8 C 16 02/23/22 07:04 36.7 C 18 02/23/22 07:04 Room Air 02/23/22 15:18 116 H 104/72 02/23/22 15:16 102 H 95 02/23/22 15:11 103 H 95 02/23/22 15:12 104 H 94 02/23/22 15:08 104 H 99/58 L 02/23/22 15:06 104 H 93 02/23/22 15:05 95 H 93 02/23/22 15:01 99 H 96 02/23/22 14:58 104 H 101/58 L 02/23/22 14:56 102 H 97 02/23/22 14:51 101 H 96 02/23/22 14:48 80 97/54 L 02/23/22 14:46 100 H 97 02/23/22 14:41 99 H 97 02/23/22 14:38 93 H 92/50 L 02/23/22 14:36 88 96 02/23/22 14:31 103 H 97 02/23/22 14:28 101 H 100/56 L 02/23/22 14:26 100 H 97 02/23/22 14:21 95 H 97 02/23/22 14:18 97 H 88/52 L 02/23/22 14:16 102 H 97 02/23/22 14:11 108 H 97 02/23/22 14:08 110 H 89/51 L 02/23/22 14:06 110 H 97 02/23/22 14:05 91 H 84/50 L 02/23/22 14:01 99 H 162/128 H 97 02/23/22 13:56 87 97 02/23/22 13:51 84 96 02/23/22 13:46 96 02/23/22 13:46 96 H 02/23/22 13:47 95 H 83/44 L 02/23/22 13:46 129 H 145/104 H 02/23/22 12:35 84 99 02/23/22 12:30 77 98 02/23/22 12:28 85 94/62 L 02/23/22 12:25 80 99 02/23/22 12:20 82 99 02/23/22 12:15 81 98 02/23/22 12:14 78 101/60 02/23/22 12:10 78 98 02/23/22 12:05 72 98 02/23/22 12:00 83 98 02/23/22 11:59 75 107/67 02/23/22 11:55 78 99 02/23/22 11:50 80 99 02/23/22 11:45 81 110/65 99 02/23/22 11:40 77 99 02/23/22 11:35 74 98 02/23/22 11:30 78 98 02/23/22 11:29 77 117/61 02/23/22 11:25 73 99 02/23/22 11:20 78 97 02/23/22 11:15 72 109/63 98 02/23/22 11:10 74 98 02/23/22 11:05 77 99 02/23/22 11:00 36.8 C 75 18 99 02/23/22 10:58 77 102/64 02/23/22 10:55 73 97 02/23/22 10:50 84 99 02/23/22 10:45 72 101/62 98 02/23/22 10:40 74 97 02/23/22 10:35 74 97 02/23/22 10:30 73 97 02/23/22 10:29 76 105/65 02/23/22 10:25 72 96 02/23/22 10:20 74 97 02/23/22 10:15 71 97 02/23/22 10:14 74 104/65 02/23/22 10:10 70 96 02/23/22 10:05 74 95 02/23/22 10:00 81 97 02/23/22 09:59 71 104/58 L 02/23/22 09:55 75 99 02/23/22 09:50 78 99 02/23/22 09:45 99 02/23/22 09:45 79 02/23/22 09:45 77 103/64 02/23/22 09:40 82 99 02/23/22 09:35 78 100 02/23/22 09:30 78 100 02/23/22 09:28 70 100/61 02/23/22 09:25 75 98 02/23/22 09:20 69 98 02/23/22 09:15 73 97 02/23/22 09:14 72 103/64 02/23/22 09:10 72 97 02/23/22 09:05 77 99 02/23/22 09:00 77 99 02/23/22 08:59 71 101/62 02/23/22 08:55 69 97 02/23/22 08:50 77 97 02/23/22 08:45 70 95 02/23/22 08:43 65 87/49 L 02/23/22 08:40 72 96 02/23/22 08:35 74 97 02/23/22 08:33 69 85/53 L 02/23/22 08:31 71 85/53 L 02/23/22 08:30 65 96 02/23/22 08:29 67 79/46 L 02/23/22 08:25 67 97 02/23/22 08:20 69 96 02/23/22 08:15 97 02/23/22 08:15 68 02/23/22 08:15 69 82/49 L 02/23/22 08:09 68 98 02/23/22 08:04 71 97 02/23/22 07:59 76 103/59 L 97 02/23/22 07:54 78 97 02/23/22 07:49 75 96 02/23/22 07:44 78 96 02/23/22 07:43 76 101/64 02/23/22 07:39 77 96 02/23/22 07:34 79 96 02/23/22 07:29 88 98 02/23/22 07:28 82 99/62 L 02/23/22 07:24 79 97 02/23/22 07:19 88 97 02/23/22 07:14 81 106/61 96 02/23/22 07:09 85 98 02/23/22 07:04 84 98 02/23/22 06:59 92 H 97 02/23/22 06:58 93 H 105/67 02/23/22 06:54 84 98 02/23/22 06:49 80 97 02/23/22 06:44 84 97 02/23/22 06:43 85 110/69 02/23/22 06:39 85 98 02/23/22 06:34 83 98 02/23/22 06:29 82 98 02/23/22 06:28 77 110/69 02/23/22 06:24 78 97 02/23/22 06:19 79 97 02/23/22 06:14 87 99 02/23/22 06:13 85 102/63 02/23/22 06:09 82 98 02/23/22 06:04 78 98 02/23/22 05:59 79 97 02/23/22 05:58 73 106/65 02/23/22 05:54 75 97 02/23/22 05:49 77 97 02/23/22 05:45 78 107/61 02/23/22 05:44 81 98 02/23/22 05:39 83 99 02/23/22 05:34 74 99 02/23/22 05:29 98 02/23/22 05:29 71 02/23/22 05:29 72 97/57 L 02/23/22 05:23 70 97 02/23/22 05:18 75 98 02/23/22 05:15 84 92 02/23/22 05:13 81 99 02/23/22 05:08 74 98 02/23/22 05:03 79 98 02/23/22 04:58 79 99/60 L 100 02/23/22 04:53 75 98 02/23/22 04:48 80 98 02/23/22 04:44 75 107/63 02/23/22 04:43 74 98 02/23/22 04:38 77 96 02/23/22 04:33 77 98 02/23/22 04:30 78 105/67 02/23/22 04:28 75 98 02/23/22 04:23 79 97 02/23/22 04:18 82 98 02/23/22 04:14 77 102/65 02/23/22 04:13 79 99 02/23/22 04:08 78 98 02/23/22 04:03 79 98 02/23/22 04:00 74 100/63 02/23/22 03:58 74 100 02/23/22 03:53 74 98 02/23/22 03:48 75 96 02/23/22 03:44 75 97/60 L 02/23/22 03:43 76 97 02/23/22 03:38 75 98 02/23/22 03:33 77 100 02/23/22 03:28 72 99/59 L 97 02/23/22 03:23 70 95 02/23/22 03:18 70 96 02/23/22 03:13 68 98/57 L 96 02/23/22 03:08 71 98 02/23/22 03:03 78 99 02/23/22 02:59 72 106/60 02/23/22 02:58 70 97 02/23/22 02:53 72 97 02/23/22 02:48 66 97 02/23/22 02:43 67 97 02/23/22 02:44 79 99/62 L 02/23/22 02:38 69 97 02/23/22 02:33 66 97 02/23/22 02:30 67 104/65 02/23/22 02:28 64 97 02/23/22 02:23 67 97 02/23/22 02:18 78 100 02/23/22 02:15 78 116/60 02/23/22 02:13 85 100 02/23/22 02:14 75 108/64 02/23/22 02:08 81 100 02/23/22 02:03 62 99 02/23/22 02:00 62 96/59 L 02/23/22 01:58 65 99 02/23/22 01:53 63 97 02/23/22 01:48 65 99 02/23/22 01:45 64 88/55 L 02/23/22 01:43 64 99 02/23/22 01:38 64 99 02/23/22 01:33 66 99 02/23/22 01:28 61 95/60 L 97 02/23/22 01:23 63 97 02/23/22 01:18 62 97 02/23/22 01:13 65 97/59 L 96 02/23/22 01:08 64 97 02/23/22 01:03 68 99 02/23/22 01:00 63 91/58 L 02/23/22 00:58 66 99 02/23/22 00:53 68 96 02/23/22 00:48 65 96 02/23/22 00:44 65 89/52 L 02/23/22 00:43 63 97 02/23/22 00:38 63 96 02/23/22 00:33 63 96 02/23/22 00:28 70 98 02/23/22 00:29 66 94/55 L 02/23/22 00:23 64 96 02/23/22 00:18 60 96 02/23/22 00:14 64 98/56 L 02/23/22 00:13 63 97 02/23/22 00:08 63 98 02/23/22 00:03 64 99 02/22/22 23:58 98 02/22/22 23:58 71 02/22/22 23:59 64 02/22/22 23:59 92/59 L 02/22/22 23:53 98 02/22/22 23:53 63 02/22/22 23:48 99 02/22/22 23:48 67 02/22/22 23:44 67 02/22/22 23:44 96/58 L 02/22/22 23:43 99 02/22/22 23:43 70 02/22/22 23:38 98 02/22/22 23:38 60 02/22/22 23:33 97 02/22/22 23:33 61 02/22/22 23:28 98 02/22/22 23:28 61 02/22/22 23:28 98/61 L 02/22/22 23:23 98 02/22/22 23:23 62 02/22/22 23:18 97 02/22/22 23:18 62 02/22/22 23:15 60 02/22/22 23:15 99/59 L 02/22/22 23:13 98 02/22/22 23:13 63 02/22/22 23:08 98 02/22/22 23:08 62 02/22/22 23:03 99 02/22/22 23:03 68 02/22/22 22:59 67 02/22/22 22:59 100/55 L 02/22/22 22:58 98 02/22/22 22:58 62 02/22/22 22:53 98 02/22/22 22:53 67 02/22/22 22:48 97 02/22/22 22:48 62 02/22/22 22:43 97 02/22/22 22:43 69 02/22/22 22:43 105/64 02/22/22 22:38 97 02/22/22 22:38 64 02/22/22 22:33 97 02/22/22 22:33 64 02/22/22 22:29 64 02/22/22 22:29 103/59 L 02/22/22 22:28 97 02/22/22 22:28 64 02/22/22 22:23 97 02/22/22 22:23 63 02/22/22 22:18 98 02/22/22 22:18 69 02/22/22 22:15 64 02/22/22 22:15 97/62 L 02/22/22 22:13 98 02/22/22 22:13 68 02/22/22 22:08 99 02/22/22 22:08 69 02/22/22 22:03 97 02/22/22 22:03 66 02/22/22 22:00 65 02/22/22 22:00 101/64 02/22/22 21:58 98 02/22/22 21:58 65 02/22/22 21:53 99 02/22/22 21:53 62 02/22/22 21:48 97 02/22/22 21:48 65 02/22/22 21:43 98 02/22/22 21:43 65 02/22/22 21:44 65 02/22/22 21:44 98/60 L 02/22/22 21:38 98 02/22/22 21:38 67 02/22/22 21:33 98 02/22/22 21:33 72 02/22/22 21:29 67 02/22/22 21:29 100/59 L 02/22/22 21:28 99 02/22/22 21:28 66 02/22/22 21:23 100 02/22/22 21:23 75 02/22/22 21:18 100 02/22/22 21:18 65 02/22/22 21:15 71 02/22/22 21:15 117/53 L 02/22/22 21:13 100 02/22/22 21:13 79 02/22/22 21:00 16 02/22/22 21:00 36.8 C 16 02/22/22 21:08 98 02/22/22 21:08 82 02/22/22 21:03 98 02/22/22 21:03 72 02/22/22 20:58 99 02/22/22 20:58 73 02/22/22 20:58 99/64 L 02/22/22 20:56 85 02/22/22 20:56 102/67 02/22/22 20:54 74 02/22/22 20:54 99/62 L 02/22/22 20:53 99 02/22/22 20:53 74 02/22/22 20:52 74 02/22/22 20:52 97/63 L 02/22/22 20:50 81 02/22/22 20:50 98/64 L 02/22/22 20:48 99 02/22/22 20:48 79 02/22/22 20:48 104/63 02/22/22 20:46 77 02/22/22 20:46 98/60 L 02/22/22 20:45 75 02/22/22 20:45 101/63 02/22/22 20:43 100 02/22/22 20:43 79 02/22/22 20:44 74 02/22/22 20:44 104/63 02/22/22 20:42 77 02/22/22 20:42 97/60 L 02/22/22 20:40 72 02/22/22 20:40 101/62 02/22/22 20:40 71 02/22/22 20:40 101/64 02/22/22 20:38 99 02/22/22 20:38 70 02/22/22 20:37 77 02/22/22 20:37 110/75 02/22/22 20:33 100 02/22/22 20:33 78 02/22/22 20:28 99 02/22/22 20:28 73 02/22/22 20:24 71 02/22/22 20:24 103/66 02/22/22 20:23 99 02/22/22 20:23 73 02/22/22 20:18 100 02/22/22 20:18 73 02/22/22 19:15 18 02/22/22 19:15 37.0 C 18 02/22/22 20:13 100 02/22/22 20:13 75 02/22/22 20:08 99 02/22/22 20:08 75 02/22/22 20:03 98 02/22/22 20:03 74 02/22/22 19:03 68 02/22/22 19:03 102/56 L 02/22/22 17:58 75 02/22/22 17:58 99/54 L 02/22/22 17:05 70 02/22/22 17:05 93/58 L 02/22/22 16:08 69 02/22/22 16:08 20 91/57 L Pain Intensity Pelvic: Pain Intensity: 2 Transfer of Care Handoff Completed per policy Notes Mental Status: alert / awake / arousable Patient Amnestic to Procedure: Yes Nausea / Vomiting: adequately controlled Pain: adequately controlled Airway Patency, RR, SpO2: stable & adequate BP & HR: stable & adequate Hydration State: stable & adequate Neuraxial Anesthesia: was administered and sensory block is resolving Anesthetic Complications: no major complications apparent and Pt Satisfied with anesthetic care
[2022-02-23] MEDS ORDERED: SIMETHICONE 80 MG CHEW PO SCH (17:00)
[2022-02-23] MEDS: SIMETHICONE 80 MG CHEW PO SCH ×2 (17:21→22:18)
[2022-02-23] MEDS ORDERED: DOCUSATE SODIUM 100 MG CAP PO SCH (21:00)
[2022-02-23] MEDS: DOCUSATE SODIUM 100 MG CAP PO SCH (22:18)
[2022-02-23] MEDS: LACTATED RINGER'S 1,000 ML IV SCH (23:52)
--- NOTE | 2022-02-24 06:09 | Obstetrical Progress Note ---
Date of Service <Ayla DixonEdvin Cárdenas DO - Last Filed: 02/24/22 06:45> February 24, 2022 Assessment & Plan <Ayla DixonEdvin Cárdenas DO - Last Filed: 02/24/22 06:45> (1) care following delivery: Patient is PPD 1 s/p primary C section and doing well. - Drinking well, catheter removed this AM, ambulating well - Vitals reviewed and within normal limits- pt BP running soft her whole visit (mostly 90s/50s w/o tachycardia) - Pain well controlled w/o analgesics - OOB, ambulation, diet progression as tolerated - Blood type: B+, GBS neg, rubella immune - Plan to discharge tomorrow - After discharge, 6 week follow up with Dr. Jefferson <Natividad Jefferson MD - Last Filed: 02/24/22 07:02> (1) care following delivery: Subjective <Ayla Hidalgo DO Melia - Last Filed: 02/24/22 06:45> Patient is a 41 yo female is POD #1 following delivery at 39+3 weeks. She reports feeling well overall this morning. She denies abdominal cramping and 2/10 pain well managed w/o analgesics. Catheter removed this morning. Tolerating liquids overnight and able to ambulate to the bathroom w/o issue this morning. She endorses slight dizziness/lightheadedness that is "manageable." She has not passed gas and no bowel movement. Persistent lochia with some improvement this morning. Currently breast feeding. Review of Systems Denies fever, chills, sweats. Denies SOB, difficulty breathing, chest pain, palpitations, and chest pressure. Denies presyncope. Denies breast pain. Denies dysuria. Denies headache or changes in vision. Physical Exam <Ayla Cárdenas DO - Last Filed: 02/24/22 06:45> General: Alert and oriented. No acute distress. CV: Regular rate and rhythm. No murmurs. Respiratory: CTA bilaterally. No rhonchi, wheezes, or crackles. No increased work of breathing. Abdomen: Positive bowel sounds. Soft, nontender, and nondistended. Uterus: Fundus firm and palpable 1 cm below umbilicus. Surgical scar clean and healing well. Lower extremities: No LE edema. No deep calf pain. Josiah's negative bilaterally. Results & Data ([facility]) <Ayla Cárdenas DO - Last Filed: 02/24/22 06:45> Vital Signs (Past 12 Hours) Vital Signs Temp Pulse Resp BP Pulse Ox O2 Del Method 02/24/22 05:53 18 97 02/24/22 04:00 18 95 02/24/22 03:00 16 98 02/24/22 02:00 18 98 02/24/22 04:30 36.8 C 79 18 95/60 L 96 Room Air 02/24/22 01:00 18 97 02/24/22 00:00 18 96 02/23/22 23:29 36.7 C 71 16 98/62 L 97 Room Air 02/23/22 23:00 16 97 02/23/22 22:00 18 99 02/23/22 20:00 Room Air 02/23/22 20:00 36.6 C 83 99/57 L 02/23/22 21:00 18 100 02/23/22 20:00 18 98 02/23/22 19:00 18 97 <Natividad Jefferson MD - Last Filed: 02/24/22 07:02> Co-Signing Physician Notes Resident Physician Supervision Note: I interviewed and examined the patient. Discussed with Dr. Cárdenas and agree with findings and plan as documented in the note. Any exceptions or clarifications are listed here: [ ] Documented By: Natividad Jefferson MD, FACOG Resident Activity Tracking <Ayla Cárdenas DO - Last Filed: 02/24/22 06:45> Resident Involvement: Resident Care Provided Care Provided: OB Delivery
[2022-02-24] MEDS ORDERED: diphenhydrAMINE Capsule 25 MG CAP PO PRN ×2 (06:24→06:25)
[2022-02-24] MEDS ORDERED: diphenhydrAMINE 50 MG/ML VIAL IV PRN ×2 (06:24→06:25)
[2022-02-24] MEDS ORDERED: PROMETHAZINE HCL 25 MG in SODIUM CHLORIDE 0.9% 50 ML IV PRN ×2 (06:24→06:25)
[2022-02-24] MEDS ORDERED: oxyCODONE/ACETAMINOPHEN 5mg/325mg TAB PO PRN ×2 (06:24→06:25)
[2022-02-24] MEDS ORDERED: ONDANSETRON INJ 2 MG/ML 2 ML VIAL IV PRN ×2 (06:24→06:25)
[2022-02-24] MEDS ORDERED: SENNA 8.6 MG TAB PO PRN (06:25)
[2022-02-24] MEDS ORDERED: IBUPROFEN 600 MG TAB PO PRN (06:25)
[2022-02-24 06:58] LABS: Hematocrit (blood only) 31.7 % (34.1-44.9); Hemoglobin 10.7 g/dl (12.0-16.0); Mean Corpuscular Hemoglobin 32.4 pg (25.0-34.0); Mean Corpuscular Hgb Conc 33.8 g/dL (32.0-36.0); Mean Corpuscular Volume 96.1 fL (80.0-100.0); Mean Platelet Volume 11.7 fL (9.4-12.3); Platelet Count 125 K/uL (130-400); RDW Coefficient of Variation 12.7 % (11.5-14.5); RDW Standard Deviation 44.3 fL (36.4-46.3); White Blood Count 13.95 K/ul (4.8-10.8)
[2022-02-24 07:12] LABS: Basophils # (auto) 0.04 K/uL (0-0.2); Basophils % (auto) 0.3 %; Echinocytes 2+; Eosinophils # (auto) 0.02 K/uL (0-0.50); Eosinophils % (auto) 0.1 %; Immature Granulocytes # (auto) 0.09 K/uL (0.00-0.02); Immature Granulocytes % (auto) 0.6 %; Lymphocytes # (auto) 1.58 K/uL (1.2-3.4); Lymphocytes % (auto) 11.3 %; Monocytes # (auto) 0.78 K/uL (0.24-0.82); Monocytes % (auto) 5.6 %; Neutrophils # (auto) 11.44 K/uL (1.4-6.5); Neutrophils % (auto) 82.1 %; Polychromasia 1+
[2022-02-24] MEDS ORDERED: PRENATAL VITAMIN 1 TAB PO SCH (08:00)
[2022-02-24] MEDS ORDERED: FERROUS SULFATE 325 MG TAB PO SCH (08:00)
[2022-02-24] MEDS: SIMETHICONE 80 MG CHEW PO SCH ×4 (08:48→21:40)
[2022-02-24] MEDS: FERROUS SULFATE 325 MG TAB PO SCH (08:48)
[2022-02-24] MEDS: PRENATAL VITAMIN 1 TAB PO SCH (08:48)
[2022-02-24] MEDS: DOCUSATE SODIUM 100 MG CAP PO SCH ×2 (08:48→21:40)
[2022-02-24] MEDS: IBUPROFEN 600 MG TAB PO PRN ×4 (08:51→21:40)
[2022-02-24] MEDS ORDERED: bisacodyL 5 MG TABEC PO SCH ×2 (20:00)
[2022-02-24] MEDS: LACTATED RINGER'S 1,000 ML IV SCH (23:19)
[2022-02-25 06:45] LABS: Hematocrit (blood only) 27.6 % (34.1-44.9); Hemoglobin 9.4 g/dl (12.0-16.0)
--- NOTE | 2022-02-25 07:04 | Obstetrical Progress Note ---
Date of Service <Ayla Hidalgo DO Melia - Last Filed: 02/25/22 07:03> February 25, 2022 Assessment & Plan <Ayla Hidalgo DO Melia - Last Filed: 02/25/22 07:03> (1) care following delivery: Patient is PPD 2 s/p primary C section and doing well. - Eating well, voiding well, ambulating well - Vitals reviewed and within normal limits- BP running soft as is typical for her - Pain well controlled with analgesics - OOB, ambulation, diet progression as tolerated - Blood type: B+, GBS neg, rubella immune - Plan to discharge today - After discharge, 6 week follow up with Dr. Jefferson <Darnell Fallon MD - Last Filed: 02/25/22 07:45> (1) care following delivery: Subjective <Ayla Hidalgo DO Melia - Last Filed: 02/25/22 07:03> Patient is a 41 yo female is POD #2 following delivery at 39+3 weeks. She reports feeling well overall this morning. She denies abdominal cramping and mild pain well managed on analgesics. Voiding without issue. Tolerating regular meals overnight and able to ambulate some. She has passed gas and no bowel movement. Persistent lochia with some improvement this morning. Currently breast feeding. Review of Systems Denies fever, chills, sweats. Denies SOB, difficulty breathing, chest pain, palpitations, and chest pressure. Denies breast pain. Denies dysuria. Denies headache or changes in vision. Physical Exam <Ayla DixonEdvin Cárdenas DO - Last Filed: 02/25/22 07:03> General: Alert and oriented. No acute distress. CV: Regular rate and rhythm. No murmurs. Respiratory: CTA bilaterally. No rhonchi, wheezes, or crackles. No increased work of breathing. Abdomen: Positive bowel sounds. Soft, nontender, and nondistended. Uterus: Fundus firm and palpable 3 cm below umbilicus. Surgical scar clean and healing well. Lower extremities: No LE edema. No deep calf pain. Josiah's negative bilaterally. Results & Data ([facility]) <Ayla Cárdenas DO - Last Filed: 02/25/22 07:03> Vital Signs (Past 12 Hours) Vital Signs Temp Pulse Resp BP Pulse Ox O2 Del Method 02/24/22 23:30 Room Air 02/24/22 23:30 36.5 C 83 18 93/61 L 99 Room Air 02/24/22 19:50 36.8 C 77 20 93/57 L 98 Room Air <Darnell Fallon MD - Last Filed: 02/25/22 07:45> Co-Signing Physician Notes Patient seen with resident and agree with the above findings and plan. Stable for discharge if preferred. Resident Activity Tracking <Ayla Cárdenas DO - Last Filed: 02/25/22 07:03> Resident Involvement: Resident Care Provided Care Provided: OB Delivery
[2022-02-25] MEDS: PRENATAL VITAMIN 1 TAB PO SCH (08:20)
[2022-02-25] MEDS: FERROUS SULFATE 325 MG TAB PO SCH (08:20)
[2022-02-25] MEDS: IBUPROFEN 600 MG TAB PO PRN (08:20)
[2022-02-25] MEDS: SIMETHICONE 80 MG CHEW PO SCH (08:20)
[2022-02-25] MEDS: DOCUSATE SODIUM 100 MG CAP PO SCH (08:20)
[2022-02-25] MEDS ORDERED: bisacodyL 10 MG SUPP PR PRN ×2 (13:29→14:03)
--- NOTE | 2022-02-28 13:58 | Discharge Summary ---
Date of Service February 28, 2022 Admission HPI Per Admitting Provider Visit MADELEINE Calculator Estimated Delivery Date Method Current WG Current Estimate 02/27/22 LMP (Certain) 38w 4d LMP: 05/23/21 : 1 Full term: 0 Premature: 0 Total Number of Induced Abortions: 0 Total Number of Spontaneous Abortions: 0 Ectopics: 0 Multiple births: 0 Number of Living Children: 0 and Delivery Plans AMA>40@del *Anatomy Scan @ 20wks * Echo 22-24wks (01/18/22 @ [facility] [place])-structurally normal;mild flow acceleration across ductal arch; no f/u needed *Growth scan @32wks *Weekly NST's @36 wks *Twice weekly NST @38wks *Weekly MARTY's @38wks *Deliver by 40 wksIOL 04/25 Flu shot given 12/09/21 - [place] Discharge Data Consultations 02/22/22 07:52 Consult Anesthesiology Stat 02/23/22 11:58 Consult Anesthesiology Stat Procedures Performed Operation Date: 02/23/22 12:00 Actual Procedures p Section in LD LIVE FEMALE CHILD BORN AT 1305.(Bilateral) - Natividad Jefferson MD Hospital Course (1) care following delivery: Patient is PPD 2 s/p primary C section and doing well. - Eating well, voiding well, ambulating well - Vitals reviewed and within normal limits- BP running soft as is typical for her - Pain well controlled with analgesics - OOB, ambulation, diet progression as tolerated - Blood type: B+, GBS neg, rubella immune - Plan to discharge today - After discharge, 6 week follow up with Dr. Jefferson Coding Level of Care Code None Diagnoses care following delivery Z39.2
== END 2022-02-25 11:15 | disposition home or self-care (01) | DRG 788 ==
LOC: 4S1 07:48 → 4E2 02-23 16:23
DX: Z3A.39 39 weeks gestation of pregnancy; O34.43 Maternal care for other abnormalities of cervix, third trimester; O61.9 Failed induction of labor, unspecified; Z37.0 Single live birth